=== PATIENT | male | born 1985 | race Caucasian/White ===

== ENCOUNTER 2018-10-13 15:01 | Emergency (ER) | payer BC, SELFPAY ==
--- NOTE | 2018-10-13 16:10 | RAD ---
LEFT INDEX FINGER THREE VIEWS: HISTORY: Injury from a pressure washing machine with laceration. FINDINGS/IMPRESSION: No evidence for acute fracture or dislocation. No foreign body or other acute process. POS: OFF
[2018-10-13] MEDS ORDERED: Adacel (T-DAP) 0.5 ML SYRINGE ONE (16:40)
[2018-10-13] MEDS ORDERED: Bacitracin Zinc 1 Packet ONE ×2 (16:40→16:41)
[2018-10-13] MEDS ORDERED: HYDROcodone/Acetaminophen 5/325 mg Tablet ONE (16:40)
== END 2018-10-13 16:50 | disposition home or self-care (01) ==
LOC: SCSER 15:01
DX: S60.411A Abrasion of left index finger, initial encounter (principal); F20.9 Schizophrenia, unspecified; Z79.899 Other long term (current) drug therapy; W29.3XXA Contact with powered garden and outdoor hand tools and machinery, initial encounter
CPT/HCPCS: 90471; 90715

== ENCOUNTER 2023-03-29 19:40 | Emergency (ER) | payer OTHER, SELFPAY ==
[~2023-03-29 19:40] MED LIST: Iopamidol 370 76% 100 ML VIAL ONE
[2023-03-29] MEDS ORDERED: Ondansetron ODT 8 MG TAB ONE (20:30)
[2023-03-29 21:29] LABS: #Eosinphils 0.1 thou/uL (0.0-0.7); #Monocytes 0.5 thou/uL (0.11-0.59); #Neutrophils 3.3 thou/uL (1.40-6.50); %Basophils 0.4 % (0.0-1.0); %Eosinophils 2.1 % (0.0-10.0); %Lymphocytes 40.9 % (21.0-51.0); %Monocytes 7.3 % (0.0-10.0); %Neutrophils 48.6 % (42.0-75.0); Hematocrit 44.8 % (42.0-52.0); Hemoglobin 15.6 g/dL (14.0-18.0); Mean Corpuscular HGB CONC 34.8 g/dL (32.0-36.0); Mean Corpuscular Hemoglobin 29.2 pg (27.0-31.0); Mean Corpuscular Volume 83.7 fl (78.0-98.0); Mean Platelet Volume 9.6 fL (7.4-10.4); Platelet Count 241 10x3/uL (130-400); RBC Distribution Width 12.6 % (11.5-14.5); Red Blood Cell (RBC) Count 5.35 mill/uL (4.70-6.10); White Blood Cell (WBC) Count 6.7 10x3/uL (4.8-10.8)
[2023-03-29 21:57] LABS: ALT (SGPT) 33 U/L (8-55); AST (SGOT) 30 U/L (5-34); Albumin 4.4 g/dL (3.5-5.0); Alkaline Phosphatase 76 U/L (40-110); Anion Gap 13 mmol/L (10-20); BUN (Urea Nitrogen) 6 mg/dL (8.9-20.6); Bilirubin, Total 0.8 mg/dL (0.2-1.2); Calc. Creatinine Clearance 0 mL/min (70-130); Carbon Dioxide 24 mmol/L (22-29); Chloride 107 mmol/L (98-107); Estimated GFR 113; Globulin 2.5 g/dL (2.4-3.5); Glucose 92 mg/dL (70-105); Potassium 4.1 mmol/L (3.5-5.1); Protein, Total 6.9 g/dL (6.0-8.3); Sodium 140 mmol/L (136-145)
[2023-03-29 22:03] LABS: SARS-CoV-2 NAA Rapid Test Not Detected (NotDetected)
== END 2023-03-29 23:21 | disposition home or self-care (01) ==
LOC: ERS 19:40
DX: R42 Dizziness and giddiness (principal); R11.0 Nausea; E78.5 Hyperlipidemia, unspecified; I10 Essential (primary) hypertension; Z20.822 Contact with and (suspected) exposure to COVID-19
CPT/HCPCS: 36415; 70496; 80053; 85025; 93005; Q0162; Q9967

== ENCOUNTER 2023-04-08 10:34 | Emergency (ER) | payer OTHER, SELFPAY | END 2023-04-08 11:29 | disposition home or self-care (01) | LOC: ERS 10:34 | DX: L05.91 Pilonidal cyst without abscess (principal); I10 Essential (primary) hypertension | CPT/HCPCS: 99282 ==